=== PATIENT | female | born 1975 | race Caucasian/White ===

== ENCOUNTER → 2024-10-27 14:07 | Outpatient (CLI) | payer OTHER, SELFPAY ==
--- NOTE | 2024-10-27 14:12 | EKG_ITS ---
[address] [address] [address] [address] Test Date: 2024-10-27 Pat Name: Opal Laughlin Department: [facility] Room: Gender: Female Customer Engagement Specialist: bj : [id number] Requested By: Order Number: [id number] Reading MD: Mike Duke MD Measurements Intervals [place] Rate: 62 P: -4 DE: 136 QRS: 22 QRSD: 80 T: 25 QT: 432 QTc: 438 Interpretive Statements Normal sinus rhythm Electronically Signed On 10-27-2024 16:35:40 PDT by Mike Duke MD
[2024-10-27 15:04] LABS: Add Manual Diff / Slide Review NO; Hematocrit 39.3 % (36-46); Hemoglobin 13.4 g/dL (12.0-16.0); Lymphocytes Absolute Auto 3100 /uL (1100-4500); Mean Corpuscular HGB Conc 34.0 % (30-36); Mean Corpuscular Hemoglobin 31.7 PG (26-34); Mean Corpuscular Volume 93.3 fL (80-100); Platelet Count 244 X10^3/uL (150-400)
[2024-10-27 15:13] LABS: Hemoglobin A1C% w Est Avg Glu 4.9 % (4.0-6.0)
[2024-10-27 15:28] LABS: Blood Urea Nitrogen 20 mg/dL (7-17); Calcium 9.5 mg/dL (8.4-10.2); Carbon Dioxide 28 mmol/L (22-32); Chloride 103 mmol/L (98-107); Estimated Glomerular Filt Rate > 60 mL/min (>60); Glucose 83 mg/dL (70-99); HEMOLYSIS < 15 (0-50); Potassium 4.3 mmol/L (3.4-5.1); Sodium 137 mmol/L (137-145)
== END ==
PROVIDERS: Referring Provider Orthopaedic Surgery Foot and Ankle Surgery; Visit Provider Orthopaedic Surgery Foot and Ankle Surgery
DX: Z01.812 Encounter for preprocedural laboratory examination (principal); R73.9 Hyperglycemia, unspecified; Z01.818 Encounter for other preprocedural examination
CPT/HCPCS: 36415; 80048; 83036; 85025; 93005